=== PATIENT | male | born 1955 | race Caucasian/White ===

== ENCOUNTER 2016-08-08 11:20 | Inpatient (IN) | payer BC, OTHER ==
[~2016-08-08] VITALS: Ht 185.4 cm; Wt 123.9 kg
--- NOTE | 2016-08-08 12:36 | NUR ---
Patient arrives via wheelchair from Dr. Jackson's office. Reports mild SOA. Denies pain. Oxygen saturation upon arrival = 80% on roomair. 4L of 02 applied per nc. Expiratory wheezes noted to right upper lobe. See admission for full assessment.
--- NOTE | 2016-08-08 13:00 | NUR ---
20g IV initiated into left forearm on first attempt by Angi Casper RN. Patient tolerates well. Oxygen saturation 88% on 4L of 02. Increased to 5L at this time. Denies SOA. Will continue to monitor.
[2016-08-08 13:05] VITALS: BP 190/106
[2016-08-08] MEDS ORDERED: ALBUTEROL 0.083% NEB SOLUTION 2.5 MG/3 ML VIAL INH PRN (13:25)
[2016-08-08] MEDS ORDERED: ACETAMINOPHEN 325 MG TAB (TYLENOL) PO PRN (13:25)
[2016-08-08] MEDS ORDERED: MAGNESIUM HYDROXIDE 80MG/ML (MILK OF MAGNESIA) 30 ML UDC PO PRN (13:30)
[2016-08-08] MEDS ORDERED: PROMETHAZINE HCL INJ 12.5 MG in SODIUM CHLORIDE 25 ML IV PRN (13:30)
[2016-08-08] MEDS ORDERED: DOCUSATE SODIUM 100 MG (COLACE) CAP PO PRN (13:30)
[2016-08-08] MEDS ORDERED: MAG HYDROX/AL HYDROX/SIMETH 200-200-20/5 ML (MAG-AL PLUS) 30 ML UDC PO PRN (13:30)
[2016-08-08] MEDS ORDERED: ONDANSETRON 4 MG (ZOFRAN) ORAL DISSOLVE TAB PO PRN (13:30)
[2016-08-08] MEDS ORDERED: CALCIUM CARBONATE CHEWABLE 300 MG (TUMS) TABLET PO PRN (13:30)
[2016-08-08 13:59] LABS: BASOPHILS % (AUTO) 0 % (0-2); EOSINOPHILS # (AUTO) 0.2 10^3uL; EOSINOPHILS % (AUTO) 1 % (0-4); LYMPHOCYTES # (AUTO) 1.6 X10^3; MEAN CORPUSCULAR HEMOGLOBIN 30.8 PG (26.0-34.0); MEAN CORPUSCULAR HGB CONC 33.8 g/dL (31.0-37.0); MEAN CORPUSCULAR VOLUME 91 FL (80-100); MEAN PLATELET VOLUME 10.4 FL (6.0-9.5); MONOCYTES # (AUTO) 1.5 X10^3; MONOCYTES % (AUTO) 12 % (3-11); NEUTROPHILS # (AUTO) 9.6 X10^3; NEUTROPHILS % (AUTO) 74 % (51-67); PLATELET COUNT 168 10^3uL (150-450); WHITE BLOOD COUNT 12.94 10^3uL (4.0-11.0)
[2016-08-08 14:12] VITALS: BP 190/106
[2016-08-08 14:19] LABS: ALBUMIN 4.1 g/dL (3.4-5.0); ANION GAP 14.1 MEQ/L (3-15); CALCULATED IONIZED CALCIUM 3.8 mg/dL (3.8-4.6); TOTAL PROTEIN 7.5 g/dL (6.4-8.5)
[2016-08-08] MEDS: LEVOFLOXACIN 750 MG/150 ML IV 150 ML IV SCH (14:28)
[2016-08-08 14:39] LABS: INFLUENZA VIRUS TYPE A ANTIBOD Negative (NEGATIVE); INFLUENZA VIRUS TYPE B ANTIBOD Negative (NEGATIVE)
[2016-08-08] MEDS: NICOTINE 21 MG (NICODERM) PATCH TD SCH (14:39)
[2016-08-08 15:52] VITALS: BP 160/115
[2016-08-08] MEDS: ALBUTEROL/IPRATROPIUM 3MG-0.5MG/3ML (DUONEB) NEB VIAL INH PRN (16:22)
--- NOTE | 2016-08-08 17:22 | NUR ---
MED REC COMPLETED-current med list obtained from Ext Med History application, PCP listing, and patient interview. Talked with Dr about updates to med rec listing. Dr. Phong cordoba'ed updating inpatient orders to current home med of amlodipine/benazepril with auto sub to lisinopril. Conducted by Carolynn Vyas, [employer] 2017.
--- NOTE | 2016-08-08 18:29 | NUR ---
Patient sitting up in bed consuming supper. Denies pain or distress. Persistent hacking cough noted. Sputum sample obtained and taken to lap. IV bolus completed and IV SL. 5L of 02 intact per nc. Respirations even and mildly labored. Patient educated on PRN breathing treatment schedule and agrees to call when need arises. Call light in reach.
[2016-08-08 19:32] VITALS: BP 171/100
[2016-08-08] MEDS: guaiFENesin ER 600 MG (MUCINEX) TAB PO SCH (20:21)
[2016-08-08 23:56] VITALS: BP 151/91
[2016-08-09] MEDS: ALBUTEROL/IPRATROPIUM 3MG-0.5MG/3ML (DUONEB) NEB VIAL INH PRN (00:55)
--- NOTE | 2016-08-09 00:59 | NUR ---
Pt called for breathing tx, pt is sitting on edge of bed at this time, awake and alert, tolerated tx well. BS are very diminished pre tx, pt is on 6L NC, SPO2 93%. Post tx BS are expiratory wheezes.
[2016-08-09 04:06] VITALS: BP 133/78
--- NOTE | 2016-08-09 06:10 | NUR ---
Pt rests in short intervals throughout the night. PRN tylenol provided for c/o generalized pain. SL intact. Frequent, strong, wet cough noted. Cont on 6L oxygen per nc.
[2016-08-09 06:46] LABS: BASOPHILS % (AUTO) 0 % (0-2); EOSINOPHILS # (AUTO) 0.1 10^3uL; EOSINOPHILS % (AUTO) 1 % (0-4); LYMPHOCYTES # (AUTO) 1.9 X10^3; MEAN CORPUSCULAR HEMOGLOBIN 31.3 PG (26.0-34.0); MEAN CORPUSCULAR HGB CONC 33.5 g/dL (31.0-37.0); MEAN CORPUSCULAR VOLUME 93 FL (80-100); MEAN PLATELET VOLUME 10.9 FL (6.0-9.5); MONOCYTES # (AUTO) 1.3 X10^3; MONOCYTES % (AUTO) 12 % (3-11); NEUTROPHILS # (AUTO) 7.6 X10^3; NEUTROPHILS % (AUTO) 69 % (51-67); PLATELET COUNT 167 10^3uL (150-450); WHITE BLOOD COUNT 11.02 10^3uL (4.0-11.0)
[2016-08-09 07:03] LABS: ALBUMIN 3.8 g/dL (3.4-5.0); ANION GAP 11.6 MEQ/L (3-15); PHOSPHORUS 3.8 mg/dL (2.4-4.9)
[2016-08-09] MEDS ORDERED: NS FLUSH 3 ML PRN IV (08:05)
[2016-08-09] MEDS ORDERED: NS FLUSH 10 ML PRN IV (08:05)
[2016-08-09 08:25] VITALS: BP 144/85
[2016-08-09] MEDS ORDERED: amLODIPine 2.5MG (NORVASC) TAB PO SCH (09:00)
[2016-08-09] MEDS: NICOTINE PATCH REMOVAL TOP SCH (09:15)
[2016-08-09] MEDS: guaiFENesin ER 600 MG (MUCINEX) TAB PO SCH ×2 (09:43→20:57)
[2016-08-09] MEDS: amLODIPine 10 MG (NORVASC) TAB PO SCH (09:44)
[2016-08-09] MEDS: meTOproloL SUCCINATE 50 MG (TOPROL XL) TAB PO SCH (09:44)
[2016-08-09] MEDS: predniSONE 20 MG (DELTASONE) TABLET PO SCH (09:44)
[2016-08-09] MEDS: lisINopril 40 MG (PRINIVIL) TABLET PO SCH (09:44)
[2016-08-09] MEDS: NICOTINE 21 MG (NICODERM) PATCH TD SCH (09:45)
[2016-08-09] MEDS: NS FLUSH 3 ML DAILY IV SCH (09:45)
[2016-08-09] MEDS: ENOXAPARIN 40 MG/0.4 ML (LOVENOX) SYR SC SCH (09:46)
[2016-08-09] MEDS: ALBUTEROL/IPRATROPIUM 3MG-0.5MG/3ML (DUONEB) NEB VIAL INH SCH ×3 (11:56→23:03)
[2016-08-09 12:04] VITALS: BP 144/99
--- NOTE | 2016-08-09 13:35 | NUR ---
Right ear irrigated with warm water. Tolerated well. No wax noted after several times of irrigating. Visiting with family. Sitting on edge of bed. O2 on at 6L. SOA noted on exertion.
[2016-08-09] MEDS: LEVOFLOXACIN 750 MG/150 ML IV 150 ML IV SCH (14:30)
[2016-08-09] MEDS ORDERED: SODIUM CHLORIDE 100 ML ONE (14:33)
[2016-08-09 16:12] VITALS: BP 147/89
--- NOTE | 2016-08-09 17:49 | NUR ---
BS are improved from yesterday, exp. wheezing on L. Cough is loose, non-prod.. O2 @ 6L nc, 92%. Encouraged use of IS.
--- NOTE | 2016-08-09 18:26 | NUR ---
Sitting up eating supper on edge of bed. O2 cont. at 6L. SOA with exertion. C/o being hot - has had window open part of afternoon. States can hear some better out of right ear. Alert and oriented. Skin w/d.
--- NOTE | 2016-08-09 20:00 | NUR ---
Patient resting in bed. Respirations even and non-labored. Is alert and oriented. Lung sounds are coarse and wheezing noted bilaterally. No discomforts voiced. No needs at this time. HOB elevated 30 degrees. No respiratory distress noted when at rest. Call light within reach.
[2016-08-09 20:04] VITALS: BP 153/91
[2016-08-09] MEDS: BUDESONIDE NEBS 0.5 MG/2ML (PULMICORT) AMP INH SCH (23:03)
--- NOTE | 2016-08-09 23:07 | NUR ---
Pt found lying in bed on 6 l/min NC with humidity, SPO2 94%, HR 94, RR 16 with very diminished wheezes throughout all lung valdez. Duoneb and Pulmicort given via SVN, BS slightly improved post Tx IS x 5 x 1250
[2016-08-09 23:49] VITALS: BP 136/71
[2016-08-10 04:55] VITALS: BP 136/74
--- NOTE | 2016-08-10 05:33 | NUR ---
Patient rested at long intervals tonight. Oxygen remains on at 6 liters per nasal cannula. Watches TV when awake. Cooperative with cares. Does become SOA with exertion. Comfortable at present time. Call light within reach.
[2016-08-10] MEDS: ALBUTEROL/IPRATROPIUM 3MG-0.5MG/3ML (DUONEB) NEB VIAL INH SCH ×4 (05:50→22:30)
--- NOTE | 2016-08-10 05:53 | NUR ---
Pt found sitting on the side of his bed, SPO2 93% on 6 l/min NC with humidity. HR 77, RR 16 with fine wheezes throughout all lung valdez before Tx. Improved air movement post Tx.
[2016-08-10 06:35] LABS: ANION GAP 12.8 MEQ/L (3-15)
[2016-08-10 06:38] LABS: BASOPHILS % (AUTO) 0 % (0-2); EOSINOPHILS % (AUTO) 0 % (0-4); LYMPHOCYTES # (AUTO) 1.2 X10^3; MEAN CORPUSCULAR VOLUME 95 FL (80-100); MONOCYTES % (AUTO) 9 % (3-11); NEUTROPHILS % (AUTO) 80 % (51-67); PLATELET COUNT 184 10^3uL (150-450); WHITE BLOOD COUNT 11.25 10^3uL (4.0-11.0)
[2016-08-10 06:41] LABS: MEAN CORPUSCULAR HEMOGLOBIN 34.8 PG (26.0-34.0); MEAN CORPUSCULAR HGB CONC 36.5 g/dL (31.0-37.0)
[2016-08-10 08:22] VITALS: BP 154/88
[2016-08-10] MEDS: guaiFENesin ER 600 MG (MUCINEX) TAB PO SCH ×2 (08:52→21:21)
[2016-08-10] MEDS: ENOXAPARIN 40 MG/0.4 ML (LOVENOX) SYR SC SCH (08:53)
[2016-08-10] MEDS: meTOproloL SUCCINATE 50 MG (TOPROL XL) TAB PO SCH (08:53)
[2016-08-10] MEDS: predniSONE 20 MG (DELTASONE) TABLET PO SCH (08:54)
[2016-08-10] MEDS: NICOTINE 21 MG (NICODERM) PATCH TD SCH (08:54)
[2016-08-10] MEDS: amLODIPine 10 MG (NORVASC) TAB PO SCH (08:55)
[2016-08-10] MEDS: lisINopril 40 MG (PRINIVIL) TABLET PO SCH (08:55)
[2016-08-10] MEDS: NS FLUSH 3 ML DAILY IV SCH (09:00)
[2016-08-10] MEDS: NICOTINE PATCH REMOVAL TOP SCH (09:43)
[2016-08-10] MEDS: POLYETHYLENE GLYCOL 17 GM (MIRALAX) PACKET PO PRN (10:18)
[2016-08-10] MEDS: BUDESONIDE NEBS 0.5 MG/2ML (PULMICORT) AMP INH SCH ×2 (12:17→22:30)
[2016-08-10 12:52] VITALS: BP 141/94
[2016-08-10] MEDS: LEVOFLOXACIN 750 MG/150 ML IV 150 ML IV SCH (14:43)
[2016-08-10 16:39] VITALS: BP 146/72
--- NOTE | 2016-08-10 18:30 | NUR ---
Resting in bed with O2 at 6L throughout day. Frequent harsh, hacking cough. No sputum produced - states swallows sputum if any comes up. SOA on exertion at times. Skin w/d, very garcia. Alert and oriented. Edema in left lower leg and foot. States still has feeling like hearing less in right ear.
--- NOTE | 2016-08-10 20:00 | NUR ---
Resting in bed. Watching TV. Has productive cough, but swallows secretions. Lung sounds coarse. RT treatments help him some. Denies any discomforts. No respiratory distress noted. Skin warm and dry. Skin color tanned. Oxygen remains on at 6 liters per nasal cannula. Call light within reach.
[2016-08-10 20:10] VITALS: BP 141/88
--- NOTE | 2016-08-10 22:32 | NUR ---
Pt found lying in bed asleep on 6 l/min NC with humidity, SPO2 98%, HR 72, RR 14 and non labored with clear and diminished BS throughout all lung valdez before and after Duoneb and Pulmicort vis SVN.
[2016-08-10 23:58] VITALS: BP 146/74
[2016-08-11 05:23] VITALS: BP 141/75
[2016-08-11] MEDS: ALBUTEROL/IPRATROPIUM 3MG-0.5MG/3ML (DUONEB) NEB VIAL INH SCH ×4 (05:26→20:11)
--- NOTE | 2016-08-11 05:29 | NUR ---
Pt found lying in bed on 5 l/min NC, SPO2 93%, HR 86, RR 16 with wheezes in upper right lobe before Duoneb via SVN. Air movement slightly improved post Tx with wheezes continuing in URL.
--- NOTE | 2016-08-11 06:30 | NUR ---
Rested well tonight. No concerns voiced this morning.
--- NOTE | 2016-08-11 06:32 | NUR ---
Patient rested well tonight. Oxygen remains on at 6 liters per NC. Lung sounds coarse. No other discomforts or concerns at this time. Call light within reach.
[2016-08-11 07:31] VITALS: BP 150/91
[2016-08-11] MEDS: lisINopril 40 MG (PRINIVIL) TABLET PO SCH (08:27)
[2016-08-11] MEDS: amLODIPine 10 MG (NORVASC) TAB PO SCH (08:27)
[2016-08-11] MEDS: predniSONE 20 MG (DELTASONE) TABLET PO SCH (08:27)
[2016-08-11] MEDS: guaiFENesin ER 600 MG (MUCINEX) TAB PO SCH ×2 (08:27→20:22)
[2016-08-11] MEDS: meTOproloL SUCCINATE 50 MG (TOPROL XL) TAB PO SCH (08:28)
[2016-08-11] MEDS: NICOTINE 21 MG (NICODERM) PATCH TD SCH (08:28)
[2016-08-11] MEDS: ENOXAPARIN 40 MG/0.4 ML (LOVENOX) SYR SC SCH (08:28)
[2016-08-11] MEDS: NS FLUSH 3 ML DAILY IV SCH (08:28)
[2016-08-11] MEDS: NICOTINE PATCH REMOVAL TOP SCH (08:29)
--- NOTE | 2016-08-11 08:40 | NUR ---
NUTRITION ASSESSMENT Level 1 Patient: Ko Cervantes Age/Sex: 60/M Date Screened: 08-11-16 Weight: 272.8#/124 kg Height: 73 inches Primary Diagnosis: pneumonia Diet Order: regular Relevant labs: N/A Food allergies: N Nutrition Assessment Criteria Age over 80: N Body Mass Index (BMI) under 19: N Admission Screening Indicates Risk? N Moderate/High Risk Diagnosis: 3 points TPN or PPN: N NPO or clear liquid diet: N Serum Glucose <70 or >180: N/A Hgb A1c >6.7: N/A Total: 3 points Risk Screen: __ Patient at low nutritional risk based on available data; reevaluate in 5-7 days _X_ Patient at moderate nutritional risk based on available data; reevaluate in 3-5 days __ Patient at high nutritional risk; complete Nutrition Assessment within 48 hours of admission. Comments: Pt. denied weight changes, no GI concerns. Eating well, 100% regular diet. Will reassess as documented above.
[2016-08-11 11:19] VITALS: BP 160/93
[2016-08-11] MEDS: POLYETHYLENE GLYCOL 17 GM (MIRALAX) PACKET PO PRN (11:24)
[2016-08-11] MEDS: BUDESONIDE NEBS 0.5 MG/2ML (PULMICORT) AMP INH SCH ×2 (11:28→18:02)
[2016-08-11] MEDS: LEVOFLOXACIN 750 MG TAB (LEVAQUIN) PO SCH (13:05)
--- NOTE | 2016-08-11 13:41 | NUR ---
Patient to CT via wheelchair.
--- NOTE | 2016-08-11 14:04 | NUR ---
MULTIDISCIPLINARY MTG/DR. FAUSTIN: Pt. continues to be on 4L oxygen. He is receiving prednisone and Budesonide. Pt. will possibly discharge tomorrow with home oxygen and a long tapered steroid. CT ordered. SW will need to look into the cost of oxygen for Pt. since he has [employer] insurance.
[2016-08-11 16:05] VITALS: BP 150/74
--- NOTE | 2016-08-11 18:20 | NUR ---
Patient sitting up at edge of bed. 4L of 02 intact per nc. Refuses to ambulate in [place] throughout day. Will continue to encourage. Call light in reach.
--- NOTE | 2016-08-11 19:08 | NUR ---
O2 weaned to 4Lnc 92%. Lucy tx's well. Tight NPC.
--- NOTE | 2016-08-11 19:45 | NUR ---
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
--- NOTE | 2016-08-11 20:13 | NUR ---
Pt found on 4 l/min NC with humidity, SPO2 92%, HR 100, RR 16 and non labored. BS clear and diminished throughout all lung valdez before and after Duoneb via SVN, which was tolerated well. Pr has a strong, dry NPC.
[2016-08-11 20:28] VITALS: BP 138/68
[2016-08-12 00:30] VITALS: BP 150/72
[2016-08-12 06:09] VITALS: BP 169/97
--- NOTE | 2016-08-12 06:09 | NUR ---
Pt rests well throughout the night. Denies pain. SL intact. Cont on 4L oxygen per nc. No needs at this time.
[2016-08-12 08:04] VITALS: BP 165/99
[2016-08-12] MEDS: amLODIPine 10 MG (NORVASC) TAB PO SCH (08:40)
[2016-08-12] MEDS: lisINopril 40 MG (PRINIVIL) TABLET PO SCH (08:40)
[2016-08-12] MEDS: predniSONE 20 MG (DELTASONE) TABLET PO SCH (08:40)
[2016-08-12] MEDS: guaiFENesin ER 600 MG (MUCINEX) TAB PO SCH ×2 (08:40→21:12)
[2016-08-12] MEDS: meTOproloL SUCCINATE 50 MG (TOPROL XL) TAB PO SCH (08:40)
[2016-08-12] MEDS: ENOXAPARIN 40 MG/0.4 ML (LOVENOX) SYR SC SCH (08:41)
[2016-08-12] MEDS: NICOTINE 21 MG (NICODERM) PATCH TD SCH (08:42)
[2016-08-12] MEDS: NICOTINE PATCH REMOVAL TOP SCH (08:47)
[2016-08-12] MEDS: BUDESONIDE NEBS 0.5 MG/2ML (PULMICORT) AMP INH SCH ×2 (09:16→20:36)
[2016-08-12] MEDS: ALBUTEROL/IPRATROPIUM 3MG-0.5MG/3ML (DUONEB) NEB VIAL INH SCH ×4 (09:16→20:36)
[2016-08-12] MEDS ORDERED: MAGNESIUM 1 GM/100 ML IVPB 100 ML IV ONE (09:25)
[2016-08-12] MEDS ORDERED: SODIUM CHLORIDE 25 ML IV ONE (10:20)
[2016-08-12] MEDS: NS FLUSH 3 ML DAILY IV SCH (10:29)
--- NOTE | 2016-08-12 11:16 | NUR ---
Pt rests in bed. AAOx4. Skin warm, dry, intact. Resprs nonlabored, even on 3L NC, pt tolerates this well. Denies needs. States he does not want to be discharged prematurely and "relapse". Pt states his father just and his family is coming to town this week for the . Sympathies given. Pt denies needs.
[2016-08-12 11:36] VITALS: BP 144/87
[2016-08-12] MEDS: LEVOFLOXACIN 750 MG TAB (LEVAQUIN) PO SCH (15:22)
[2016-08-12 15:32] VITALS: BP 142/84
--- NOTE | 2016-08-12 17:48 | NUR ---
BS are ess. clear, decreased bilaterally. Cough is more loose and at times prod.. Encouraged IS and walking. 87-88% on 3L nc, 90% on 3.5L.
--- NOTE | 2016-08-12 18:45 | NUR ---
Pt has denied needs this shift. Encouraged to ambulate around unit. SL intact. Denies needs.
[2016-08-12 20:00] VITALS: BP 180/90
--- NOTE | 2016-08-12 20:38 | NUR ---
Pt found sleeping in bed on 3.5 l/min NC, SPO2 94%, HR 83, RR 16 and non labored at this time with diminished coarse BS with scattered wheezes throughout before and after Duoneb abd Pulmicort via SVN/MASK. Pt has a very strong, persistent NPC.
--- NOTE | 2016-08-12 21:15 | NUR ---
Pt. sitting on edge of bed; takes PO meds without difficulty; exhibits harsh/coarse cough; O2 at 3L via NC. Pt. is pleasant and cooperative; denies discomfort; looking forward to possible dismissal tomorrow. Call light and H2O within reach.
[2016-08-13 00:30] VITALS: BP 130/80
[2016-08-13 04:00] VITALS: BP 160/80
[2016-08-13 06:11] LABS: BASOPHILS % (AUTO) 0 % (0-2); EOSINOPHILS % (AUTO) 0 % (0-4); MEAN CORPUSCULAR HGB CONC 35.4 g/dL (31.0-37.0); MEAN CORPUSCULAR VOLUME 95 FL (80-100); MONOCYTES % (AUTO) 9 % (3-11); NEUTROPHILS # (AUTO) 7.6 X10^3; NEUTROPHILS % (AUTO) 71 % (51-67); PLATELET COUNT 197 10^3uL (150-450); WHITE BLOOD COUNT 10.81 10^3uL (4.0-11.0)
[2016-08-13 06:26] LABS: ALBUMIN 3.7 g/dL (3.4-5.0); ANION GAP 11.8 MEQ/L (3-15); MAGNESIUM* 2.4 mg/dL (1.6-2.3)
[2016-08-13 06:30] VITALS: BP 160/80
--- NOTE | 2016-08-13 06:30 | NUR ---
Pt. states he slept very well last night; appears cheerful and is conversational with staff. SATS were 92-94% on 3L via NC; coarse cough noted occasionally. Pt. denies discomfort; call light and H2O within reach. Pt. denies additional needs "besides breakfast".
[2016-08-13 06:31] LABS: MEAN CORPUSCULAR HEMOGLOBIN 33.8 PG (26.0-34.0)
--- NOTE | 2016-08-13 07:25 | NUR ---
Patient sitting up in recliner reading on tablet upon shift assessment. Alert and oriented X3. Respirations even and non-labored on 3L of 02 per nc. Denies SOA, pain, nausea, or other distress. Current oxygen saturation = 93%. HR RRR. No edema noted to BLE. Updated on plan of care for shift. Encouraged ambulation. Call light in reach.
[2016-08-13] MEDS: BUDESONIDE NEBS 0.5 MG/2ML (PULMICORT) AMP INH SCH (07:49)
[2016-08-13] MEDS: ALBUTEROL/IPRATROPIUM 3MG-0.5MG/3ML (DUONEB) NEB VIAL INH SCH ×3 (07:50→15:57)
--- NOTE | 2016-08-13 07:56 | NUR ---
94% on 3L nc. BS diminished on L, ess. clear. Harsh NPC this morning. O2 decreased to 2L.
[2016-08-13 08:02] VITALS: BP 165/103
[2016-08-13] MEDS: amLODIPine 10 MG (NORVASC) TAB PO SCH (08:14)
[2016-08-13] MEDS: ENOXAPARIN 40 MG/0.4 ML (LOVENOX) SYR SC SCH (08:14)
[2016-08-13] MEDS: guaiFENesin ER 600 MG (MUCINEX) TAB PO SCH (08:14)
[2016-08-13] MEDS: NICOTINE PATCH REMOVAL TOP SCH (08:14)
[2016-08-13] MEDS: lisINopril 40 MG (PRINIVIL) TABLET PO SCH (08:14)
[2016-08-13] MEDS: NS FLUSH 3 ML DAILY IV SCH (08:14)
[2016-08-13] MEDS: meTOproloL SUCCINATE 50 MG (TOPROL XL) TAB PO SCH (08:14)
[2016-08-13] MEDS: NICOTINE 21 MG (NICODERM) PATCH TD SCH (08:15)
--- NOTE | 2016-08-13 09:39 | NUR ---
Pt. sleeping in chair, O2 sat. 86%, increased O2 to 3L.
[2016-08-13 12:00] VITALS: BP 148/94
[2016-08-13] MEDS ORDERED: MONTELUKAST 10 MG (SINGULAIR) TAB PO SCH (12:50)
[2016-08-13 15:16] VITALS: BP 129/99
--- NOTE | 2016-08-13 16:05 | NUR ---
Visited with Pt. regarding his need for oxygen needs. Information sent to [facility] to obtain home oxygen for Pt. Pt. reported he will go to his daughter, Fernando, home in [place] after discharge for a couple days. [facility] notified of where Pt. will discharge to so they can set up his oxygen. [facility] will deliver portable oxygen before Pt. is discharged.
--- NOTE | 2016-08-13 17:09 | NUR ---
Discharge order received. IV discontinued with catheter intact. No redness or swelling noted at insertion site. [facility] here with oxygen tank for home. Instructions provided with verbal and written understanding expressed.
--- NOTE | 2016-08-13 17:33 | NUR ---
Reviewed discharge medications with patient. Provided patient handout information for new medications. No additional questions or concerns. Patient verbalized understanding of medications.
--- NOTE | 2016-08-13 17:41 | NUR ---
Patient discharged ambulatory to private car accompanied by CARPET LOOM [employer]ER. No further needs.
[2016-08-14] MEDS ORDERED: LORATADINE (CLARITIN) 10 MG TAB PO SCH (09:00)
== END 2016-08-13 17:33 | disposition home or self-care (01) | DRG 189 ==
LOC: RAD 11:20 → MED/SURG 12:14
PROVIDERS: ADMIT Internal Medicine; ATTEND Internal Medicine
DX: J96.01 Acute respiratory failure with hypoxia (principal); J18.9 Pneumonia, unspecified organism; J44.0 Chronic obstructive pulmonary disease with (acute) lower respiratory infection; J44.1 Chronic obstructive pulmonary disease with (acute) exacerbation; E86.0 Dehydration; I10 Essential (primary) hypertension; E66.9 Obesity, unspecified; Z68.36 Body mass index [BMI] 36.0-36.9, adult; K59.00 Constipation, unspecified; E83.39 Other disorders of phosphorus metabolism; E83.41 Hypermagnesemia; F17.200 Nicotine dependence, unspecified, uncomplicated
CPT/HCPCS: 36415; 71020; 80048; 80053; 80069; 83735; 85025; 86140; 87040; 87070; 87205; 87502; 94640; 94760